=== PATIENT | male | born 1940 | race Hispanic/Latino ===

== ENCOUNTER 2020-04-21 10:53 | Emergency (ER) | payer MEDICARE ==
[~2020-04-21] VITALS: Ht 175.3 cm; Wt 96.9 kg
[2020-04-21] MEDS ORDERED: HYDROCODONE/APAP 5MG-325MG TAB PO ONE ×2 (11:45→14:30)
[2020-04-21] MEDS ORDERED: HYDROCODONE/APAP 5MG-325MG TAB ONE ×2 (11:45→14:24)
--- NOTE | 2020-04-21 14:03 | Emergency Department Note ---
History of Present Illnes History of Present Illness Chief Complaint: rgt ear pain / bloody drainage History of Present Illness This is a 79 year old male. was doing well until 2 weeks ago then rgt ear pain, then 1 week ago saw ent doctor(dr bullard[facility]) and dx with cholesteatoma and placed on meds Historian: Patient, Family Member Arrival Mode: Car Additional Treatment GEOSPATIAL INFORMATION SCIENTIST: ciprodex, omnicef History limited by: condition of the patient (normal) Onset (how long ago): week(s) (2) Location: rgt ear pain Quality: sharp Radiation: Reports non-radiation Severity: moderate Onset quality: gradual Duration (how long): week(s) (2) Timing of current episode: constant Progression: worsening Chronicity: new Context: Denies recent illness, Denies recent surgery, Denies recent immobilization, Denies recent travel, Denies trauma/injury, Denies new medications, Denies hx of DVT/PE Relieving factors: none Exacerbating factors: none Associated symptoms: Reports denies other symptoms Treatments prior to arrival: none Past Medical/Family History Physician Review I have reviewed the patient's past medical and family history. Any updates have been documented here. Past Medical History Recent Fever: No Clinical Suspicion of Infectio: No New/Unexplained Change in Ment: No Past Medical History: Hypertension, Diabetes, A-Fib, Hyperlipedemia Other Medical History: prostate problems Past Surgical History: Cholecysctectomy Social History Smoking Cessation: Never Smoker Counseling Performed: No Alcohol Use: Occasional Any Illegal Drug Use: No TB Exposure/Symptoms: No Physically hurt or threatened: No Family History Family history of heart diseas: Yes Other Any Pre-Existing Lines (PICC,: No Is patient up to date on immun: Yes Last Flu: UTD Last Pneumovax: none Review of Systems Review of Systems Constitutional: Reports no symptoms EENTM: Reports as per HPI Cardiovascular: Reports no symptoms Respiratory: Reports no symptoms Gastrointestinal: Reports no symptoms Genitourinary: Reports no symptoms Musculoskeletal: Reports no symptoms Integumentary: Reports no symptoms Neurological: Reports no symptoms Psychological: Reports no symptoms Endocrine: Reports no symptoms Hematological/Lymphatic: Reports no symptoms Review of other systems: All other systems negative Physical Exam Related Data Allergies: Coded Allergies: sulfamethoxazole (Verified Adverse Reaction, Unknown, decreases creatinine, 04/21/20) sensitive to high doses only trimethoprim (Verified Adverse Reaction, Unknown, decreases creatinine, 04/21/20) sensitive to high doses only Triage Vital Signs Vital Signs Date Time Temp Pulse Resp B/P (MAP) Pulse Ox O2 Delivery O2 Flow Rate FiO2 04/21/20 11:03 98.0 65 16 120/48 100 Vital signs reviewed: Yes Physical Exam CONSTITUTIONAL Constitutional: Present well-developed, Present well-nourished HENT HENT: Present normocephalic, Present atraumatic, Present oropharynx clear/moist, Present nose normal HENT L/R: Present left ext ear normal, Present other (+ bloody discharge from right ear, +perforated rgt tm) EYES Eyes: Reports PERRL, Reports conjunctivae normal NECK Neck: Present ROM normal PULMONARY Pulmonary: Present effort normal, Present breath sounds normal CARDIOVASCULAR Cardiovascular: Present regular rhythm, Present heart sounds normal, Present capillary refill normal, Present normal rate GASTROINTESTINAL Abdominal: Present soft, Present nontender, Present bowel sounds normal GENITOURINARY Genitourinary: Present exam deferred SKIN Skin: Present warm, Present dry MUSCULOSKELETAL Musculoskeletal: Present ROM normal NEUROLOGICAL Neurological: Present alert, Present oriented x 3, Present no gross motor or sensory deficits PSYCHOLOGICAL Psychological: Present mood/affect normal, Present judgement normal Results Imaging Imaging results reviewed: Yes Impressions [place] [id number] Patient Name: LANA NORRIS JR MR #: [id number] : 1940 Age/Sex: 79/M Req #: [id number] Adm Physician: Ordered by: EAGLE WELLINGTON Report #: [id number] Location: [facility] Room/Bed: Procedure: [id number] HOPD/CT ORBIT/SELLA/PF WO-HOPD Exam Date: Exam Time: REPORT STATUS: Signed CT ORBIT/SELLA/PF WO-HOPD HISTORY: Left ear bleeding, infection and pain COMPARISON: None. TECHNIQUE: Axial CT of the temporal bones was performed without contrast. Coronal, Poschl, and Stenvers reconstructed images were created. One or more of the following dose reduction techniques were used: Automated exposure control, adjustment of the mA and/or kV according to patient size, and/or utilization of iterative reconstruction technique. DISCUSSION: Right temporal bone: External auditory canal: Mild soft tissue thickening along the external auditory canal mendez without erosion. Tympanic Membrane: Not visualized. Scutum: Eroded. Ossicles: Eroded with malleus and incus remnants. Middle ear: Diffusely opacified. Mastoid air cells: Diffusely opacified with surrounding sclerosis. Tegmen tympani/mastoideum: Scattered small areas of dehiscence. Internal auditory canal: Normal in caliber. Inner ear: Normal cochlea and vestibule. Semicircular canals: Focal dehiscence of the superior semicircular canal. Facial canal: The tympanic segment may be dehiscent. Otherwise, unremarkable. Vestibular Aqueducts: Not enlarged. Left temporal bone: External auditory canal: Mild soft tissue thickening along the external auditory canal mendez without erosion. Tympanic Membrane: Not visualized. Scutum: Eroded. Ossicles: Eroded. Middle ear: Diffusely opacified. Mastoid air cells: Diffusely opacified with surrounding sclerosis. Tegmen tympani/mastoideum: Scattered small areas of dehiscence. Internal auditory canal: Normal in caliber. Inner ear: Normal cochlea and vestibule. Semicircular canals: Normal. Not dehiscent. Facial canal: The tympanic segment may be dehiscent. Vestibular Aqueducts: Not enlarged. Additional findings: Generalized cerebral volume loss is partially imaged. Carotid siphon and intradural vertebral artery calcifications are present. Bilateral ocular lens replacement. Minimal scattered paranasal sinus mucosal thickening is present. Mild chronic-appearing deformities of the right lamina papyracea, left nasal bone, and left zygomatic arch are likely from remote trauma. IMPRESSION: Right: 1. Diffuse right middle ear and mastoid air cell opacification is suspicious for cholesteatoma. There is associated erosion of the scutum, ossicles, and tegmen. The tympanic segment of the right facial canal may be dehiscent. 2. Underlying mildly sclerotic right mastoid air cells are compatible with chronic inflammation. 3. Associated mild soft tissue thickening throughout the right external auditory canal mendez without osseous erosion. The right tympanic membrane is not visualized. 4. Focal dehiscence of the right superior semicircular canal. Left: 1. Diffuse left middle ear and mastoid air cell opacification is also suspicious for cholesteatoma. There is also associated erosion of the scutum, ossicles, and tegmen. The tympanic segment of the left facial canal is dehiscent. 2. Underlying mildly sclerotic left mastoid air cells are compatible with chronic inflammation. 3. Associated mild soft tissue thickening throughout the left external auditory canal mendez without osseous erosion. The left tympanic membrane is not visualized. Signed by: Dr. Zac Miller M.D. on 04/21/2020 2:41 PM Dictated By: ZAC MILLER MD [id number] Transcribed By: JANETH on 04/21/20 1441 Assessment & Plan Medical Decision Making MDM CONTINUE MEDS. F/U WITH ENT DR MCKINNEY SCHEDULED ON 05/05/20 Reassessment Reassessment pt feels better s/p pain meds. spoke to dr bullard-ent- and said to start pt on levaquin Assessment & Plan Final Impression: (1) Cholesteatoma (2) Tympanic membrane perforation Depart Disposition: HOME, SELF-CARE Last Vital Signs Date Time Temp Pulse Resp B/P (MAP) Pulse Ox O2 Delivery O2 Flow Rate FiO2 04/21/20 11:03 98.0 65 16 120/48 100 Home Meds Active Scripts Levofloxacin (LEVAQUIN) 750 Mg Tablet, 750 MG PO DAILY for 14 Days, TAB Prov:EAGLE WELLINGTON 04/21/20 Tramadol Hcl* (ULTRAM 50MG*) 50 Mg Tab, 50 MG PO Q4HR PRN for MODERATE PAIN (4- 6), #40 TAB Prov:EAGLE WELLINGTON 04/21/20 Medications in the ED Acetaminophen/ Hydrocodone Bitart 1 ea STK-MED ONCE .ROUTE ; Start 04/21/20 at 11:45; Stop 04/21/20 at 11:40; Status DC Acetaminophen/ Hydrocodone Bitart 1 ea ONCE ONCE PO Last administered on 04/21/20at 11:40; Admin Dose 1 EA; Start 04/21/20 at 11:45; Stop 04/21/20 at 12:10; Status DC EAGLE WELLINGTON Apr 21, 2020 14:03
--- NOTE | 2020-04-21 14:45 | Diagnostic Imaging Report ---
CT ORBIT/SELLA/PF WO-HOPD HISTORY: Left ear bleeding, infection and pain COMPARISON: None. TECHNIQUE: Axial CT of the temporal bones was performed without contrast. Coronal, Poschl, and Stenvers reconstructed images were created. One or more of the following dose reduction techniques were used: Automated exposure control, adjustment of the mA and/or kV according to patient size, and/or utilization of iterative reconstruction technique. DISCUSSION: Right temporal bone: External auditory canal: Mild soft tissue thickening along the external auditory canal mendez without erosion. Tympanic Membrane: Not visualized. Scutum: Eroded. Ossicles: Eroded with malleus and incus remnants. Middle ear: Diffusely opacified. Mastoid air cells: Diffusely opacified with surrounding sclerosis. Tegmen tympani/mastoideum: Scattered small areas of dehiscence. Internal auditory canal: Normal in caliber. Inner ear: Normal cochlea and vestibule. Semicircular canals: Focal dehiscence of the superior semicircular canal. Facial canal: The tympanic segment may be dehiscent. Otherwise, unremarkable. Vestibular Aqueducts: Not enlarged. Left temporal bone: External auditory canal: Mild soft tissue thickening along the external auditory canal mendez without erosion. Tympanic Membrane: Not visualized. Scutum: Eroded. Ossicles: Eroded. Middle ear: Diffusely opacified. Mastoid air cells: Diffusely opacified with surrounding sclerosis. Tegmen tympani/mastoideum: Scattered small areas of dehiscence. Internal auditory canal: Normal in caliber. Inner ear: Normal cochlea and vestibule. Semicircular canals: Normal. Not dehiscent. Facial canal: The tympanic segment may be dehiscent. Vestibular Aqueducts: Not enlarged. Additional findings: Generalized cerebral volume loss is partially imaged. Carotid siphon and intradural vertebral artery calcifications are present. Bilateral ocular lens replacement. Minimal scattered paranasal sinus mucosal thickening is present. Mild chronic-appearing deformities of the right lamina papyracea, left nasal bone, and left zygomatic arch are likely from remote trauma. IMPRESSION: Right: 1. Diffuse right middle ear and mastoid air cell opacification is suspicious for cholesteatoma. There is associated erosion of the scutum, ossicles, and tegmen. The tympanic segment of the right facial canal may be dehiscent. 2. Underlying mildly sclerotic right mastoid air cells are compatible with chronic inflammation. 3. Associated mild soft tissue thickening throughout the right external auditory canal mendez without osseous erosion. The right tympanic membrane is not visualized. 4. Focal dehiscence of the right superior semicircular canal. Left: 1. Diffuse left middle ear and mastoid air cell opacification is also suspicious for cholesteatoma. There is also associated erosion of the scutum, ossicles, and tegmen. The tympanic segment of the left facial canal is dehiscent. 2. Underlying mildly sclerotic left mastoid air cells are compatible with chronic inflammation. 3. Associated mild soft tissue thickening throughout the left external auditory canal mendez without osseous erosion. The left tympanic membrane is not visualized. Signed by: Dr. Zac Miller M.D. on 04/21/2020 2:41 PM
[2020-04-21] MEDS ORDERED: LEVAQUIN750 MG PO (15:26)
[2020-04-21] MEDS ORDERED: ULTRAM 50MG50 MG PO (15:26)
[2020-04-21 15:52] VITALS: BP 142/57
== END 2020-04-21 15:43 | disposition home or self-care (01) ==
LOC: FSED 10:53
DX: H71.91 Unspecified cholesteatoma, right ear (principal); H72.91 Unspecified perforation of tympanic membrane, right ear; I10 Essential (primary) hypertension; E11.9 Type 2 diabetes mellitus without complications; I48.91 Unspecified atrial fibrillation; E78.5 Hyperlipidemia, unspecified
CPT/HCPCS: 70480; 99283

== ENCOUNTER 2020-04-28 13:21 | Emergency (ER) | payer MEDICARE ==
[~2020-04-28] VITALS: Ht 175.3 cm; Wt 96.6 kg
[~2020-04-28 13:21] MED LIST: LEVAQUIN750 MG PO; ULTRAM 50MG50 MG PO
[2020-04-28] MEDS ORDERED: SODIUM CHLORIDE 0.9% 1000ML 1,000 ML IV STA (13:43)
[2020-04-28] MEDS ORDERED: ONDANSETRON HCL INJ 2MG/ML 2ML 2 MG/ML VIAL IV ONE (13:45)
[2020-04-28] MEDS ORDERED: CEFTRIAXONE SOD 1 GM VIAL IV ONE (13:45)
[2020-04-28] MEDS ORDERED: FAMOTIDINE 20 MG/2 ML VIAL IV ONE ×2 (13:45→14:45)
--- NOTE | 2020-04-28 13:51 | Emergency Department Note ---
History of Present Illnes History of Present Illness Chief Complaint: General Medicine Complaints History of Present Illness This is a 79 year old male was seen here over a week ago for right ear pain. Still has ear pain and now jaw pain. Pt. has been experiencing dizziness, weakness, nausea, concentrated urine and low BP x2 days per his . 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 Past Medical History Hypertension, Diabetes, A-Fib, Hyperlipedemia Other Medical History prostate problems , state 3 CKD Past Surgical History: Cholecystectomy Arrival Mode: Car Pelt Salter Required: No Onset (how long ago): day(s) Radiation: Reports non-radiation Severity: mild Onset quality: gradual Duration (how long): day(s) Progression: waxing and waning Context: Reports recent illness Relieving factors: none Exacerbating factors: none Treatments prior to arrival: none Previous service: medications given Past Medical/Family History Physician Review I have reviewed the patient's past medical and family history. Any updates have been documented here. Past Medical History Recent Fever: No Clinical Suspicion of Infectio: No New/Unexplained Change in Ment: No Past Medical History: Hypertension, Diabetes, A-Fib, Hyperlipedemia Other Medical History: prostate problems Past Surgical History: Cholecysctectomy Social History Smoking Cessation: Unknown if ever smoked Alcohol Use: None Any Illegal Drug Use: No TB Exposure/Symptoms: No Physically hurt or threatened: No Family History Family history of heart diseas: No Other Any Pre-Existing Lines (PICC,: No Review of Systems Review of Systems Constitutional: Reports no symptoms EENTM: Reports ear pain Cardiovascular: Reports no symptoms Respiratory: Reports no symptoms Gastrointestinal: Reports nausea, Reports other (poor appetide ) Genitourinary: Reports no symptoms Musculoskeletal: Reports no symptoms Integumentary: Reports no symptoms Neurological: Reports no symptoms Psychological: Reports no symptoms Endocrine: Reports no symptoms Hematological/Lymphatic: Reports no symptoms Physical Exam Related Data Allergies: Coded Allergies: sulfamethoxazole (Verified Adverse Reaction, Unknown, decreases creatinine, 04/21/20) sensitive to high doses only trimethoprim (Verified Adverse Reaction, Unknown, decreases creatinine, 04/21/20) sensitive to high doses only Triage Vital Signs Vital Signs Date Time Temp Pulse Resp B/P (MAP) Pulse Ox O2 Delivery O2 Flow Rate FiO2 04/28/20 13:41 98.8 83 16 106/55 97 Vital signs reviewed: Yes Physical Exam CONSTITUTIONAL Constitutional: Present well-developed HENT HENT: Present normocephalic, Present atraumatic, Present oropharynx clear/moist, Present nose normal HENT L/R: Present left ext ear normal, Present other (right ear looks red, TM no visualized) EYES Eyes: Reports PERRL, Reports conjunctivae normal NECK Neck: Present ROM normal PULMONARY Pulmonary: Present effort normal, Present breath sounds normal CARDIOVASCULAR Cardiovascular: Present regular rhythm, Present heart sounds normal, Present capillary refill normal, Present normal rate GASTROINTESTINAL Abdominal: Present soft, Present nontender, Present bowel sounds normal GENITOURINARY Genitourinary: Present exam deferred SKIN Skin: Present warm, Present dry MUSCULOSKELETAL Musculoskeletal: Present ROM normal NEUROLOGICAL Neurological: Present alert, Present oriented x 3, Present no gross motor or sensory deficits PSYCHOLOGICAL Psychological: Present mood/affect normal, Present judgement normal Results Laboratory Lab results reviewed: Yes Laboratory comments CBC ok, CR 2.2 c/w CKD Assessment & Plan Medical Decision Making MDM poor oral intake due to n/v secondary to right ear tumor, will hydrate and give zofran Reassessment Reassessment time: 16:22 Reassessment doing better, taking PO well Assessment & Plan Final Impression: (1) Dehydration (2) Renal failure (ARF), acute on chronic Depart Disposition: HOME, SELF-CARE Last Vital Signs Date Time Temp Pulse Resp B/P (MAP) Pulse Ox O2 Delivery O2 Flow Rate FiO2 04/28/20 13:41 98.8 83 16 106/55 97 Home Meds Active Scripts Famotidine (FAMOTIDINE) 20 Mg Tab, 20 MG PO BID, #30 TAB Prov:AMARILYS SIMON MD 04/28/20 Ondansetron Hcl* (ZOFRAN*) 4 Mg Tablet, 4 MG SL Q6H PRN for NAUSEA, #14 MG 0 Refills Prov:AMARILYS SIMON MD 04/28/20 Levofloxacin (LEVAQUIN) 750 Mg Tablet, 750 MG PO DAILY for 14 Days, TAB Prov:EAGLE WELLINGTON 04/21/20 Tramadol Hcl* (ULTRAM 50MG*) 50 Mg Tab, 50 MG PO Q4HR PRN for MODERATE PAIN (4- 6), #40 TAB Prov:EAGLE WELLINGTON 04/21/20 Medications in the ED Ondansetron HCl 4 mg ONCE ONCE IV ; Start 04/28/20 at 13:45; Stop 04/28/20 at 13:46; Status UNV Famotidine 20 mg ONCE ONCE IV ; Start 04/28/20 at 13:45; Stop 04/28/20 at 13:4 6; Status UNV Sodium Chloride 1,000 ml @ 0 mls/hr Q0M STAT IV ; Start 04/28/20 at 13:43; Stop 04/28/20 at 13:46; Status DC Ceftriaxone Sodium 1 gm ONCE ONCE IV ; Start 04/28/20 at 13:45; Stop 04/28/20 at 13:46; Status UNV Physician Attestation Provider Attestation taking PO well, f/c with his doctor for kidney fx check AMARILYS SIMON MD Apr 28, 2020 13:51
[2020-04-28] MEDS ORDERED: CEFTRIAXONE SOD 1 GM/NS 50 ML 50 ML IV SCH (14:15)
[2020-04-28] MEDS ORDERED: CEFTRIAXONE SOD 1 GM VIAL ONE (14:44)
[2020-04-28] MEDS ORDERED: ONDANSETRON HCL INJ 2MG/ML 2ML 2 MG/ML VIAL ONE (14:44)
[2020-04-28] MEDS ORDERED: SODIUM CHLORIDE 0.9% 1000ML 1,000 ML ONE (14:45)
[2020-04-28] MEDS ORDERED: FAMOTIDINE20 MG PO (16:27)
[2020-04-28] MEDS ORDERED: ZOFRAN4 MG SL (16:27)
== END 2020-04-28 16:39 | disposition home or self-care (01) ==
LOC: FSED 13:21
DX: H92.01 Otalgia, right ear (principal); R68.84 Jaw pain; E86.0 Dehydration; N17.9 Acute kidney failure, unspecified; I10 Essential (primary) hypertension; E11.9 Type 2 diabetes mellitus without complications; E78.5 Hyperlipidemia, unspecified; I48.91 Unspecified atrial fibrillation
CPT/HCPCS: 80053; 81003; 82553; 84484; 85025; 99283; J0696; J2405; J7030